=== PATIENT | female | born 1975 | race Caucasian/White ===

== ENCOUNTER 2016-06-17 06:56 | Day surgery (SDC) | payer OTHER ==
[2016-06-17] VITALS (9 sets, daily range): BP systolic 94–127; BP diastolic 55–94; PULSE 76–110; RESP 13–22; O2SAT 95–100
[~2016-06-17] VITALS: Ht 157.5 cm; Wt 88.9 kg
[~2016-06-17 06:56] MED LIST: CETI-343 PO; CYA1000I IM; DOCU-41 PO; FLUO60TA PO; GABA600T2 PO; KLO5T PO; LEVO175T5 PO; NPR500T PO; OXYC1TAB24 PO; TRAZ-118 PO
[2016-06-17] MEDS ORDERED: Glycopyrrolate 0.2 mg/mL 5 mL Inj ONE (06:57)
[2016-06-17] MEDS ORDERED: Neostigmine 1 mg/mL 5 mL Inj ONE (06:57)
[2016-06-17] MEDS ORDERED: Rocuronium 10 mg/mL 5 mL Inj ONE (06:57)
[2016-06-17] MEDS ORDERED: Dexamethasone 4 mg/mL Inj ONE (06:57)
[2016-06-17] MEDS ORDERED: HYDROmorphone 2 mg/mL Inj ONE (06:57)
[2016-06-17] MEDS ORDERED: Propofol 10,000 mCg/mL 20 mL Inj ONE (06:57)
[2016-06-17] MEDS ORDERED: EPHEDrine/NS 5 mg/mL 5 mL Syringe ONE (06:57)
[2016-06-17] MEDS ORDERED: Ondansetron 2 mg/mL 2 mL Inj ONE (06:57)
[2016-06-17] MEDS ORDERED: Lidocaine PF 1% 30 mL Inj ONE (06:57)
[2016-06-17] MEDS ORDERED: fentaNYL-PF 50 mCg/mL 2 mL Inj ONE (06:57)
[2016-06-17] MEDS ORDERED: MetoCLOpramide 5 mg/mL 2 mL Inj ONE (06:57)
[2016-06-17] MEDS: Lactated Ringer's 1,000 ML IV SCH ×3 (07:02→10:30)
--- NOTE | 2016-06-17 08:31 | PCM.HPANE ---
Patient Data Date of Service: Jun 17, 2016 Surgeon Admitting Provider: Attending Provider:Inderjit Rivera MD Primary Care Physician:Dillan Other Provider:Sridhar Mccullough Anesthesia Reason for Visit Phx Cervical Dysplasia, Abnormal Uterine Bleeding Ht/WT & BMI Height (Feet): 5 Height (Inches): 2.00 Weight (Kilograms): 88.9 Body Mass Index 36.00 Allergies Coded Allergies: No Known Allergies (Unverified , 06/16/16) Past Anesthesia History Anesthesia History: Denies:: Anesthesia Reactions, Malignant Hyperthermia Diabetes History Hx Diabetes?: No MRSA MRSA: No Medications Hypertension Medication: No Home Meds Incl Beta Harlan: No Reported Medications oxyCODONE-Acetaminophen 5-325 mg 1 Each Tablet1 Tab PO Q4H PRN For Pain Ref 0 06/16/16 Docusate Sodium (Colace)100 Mg Lermdhw643 Mg PO BID PRN For Constipation Ref 0 06/16/16 Cyanocobalamin (Cyanocobalamin Injection)1,000 Mcg/1 Ml Vial1,000 Mcg IM Monthly 06/16/16 Trazodone 100 Mg [id number] Mg PO HS Ref 0 06/16/16 Naproxen 500 Mg Wvj919 Mg PO BID PRN For Pain Ref 0 06/16/16 Levothyroxine 175 Mcg Ybajmz741 Mcg PO DAILY Ref 0 06/16/16 Gabapentin 600 Mg Ftdulw016 Mg PO TID Ref 0 06/16/16 Fluoxetine 60 Mg Eoevbc90 Mg PO DAILY Ref 0 06/16/16 Clonazepam 0.5 Mg Tablet0.5 Mg PO BID PRN For Anxiety Ref 0 06/16/16 Cetirizine HCl (24Hour Allergy)10 Mg Fijvhx99 Mg PO DAILY 06/16/16 History History of ENT Problems?: Yes HEENT History: Positive for:: Sinus Problem (SEASONAL ALLERGIES) Hx of Heart Problems?: No Cardiovascular History: Denies:: Heart Murmur Hypertension Hx of Respiratory Problem?: Yes Respiratory History: Denies:: Use of C-PAP Machine (SNORES) Hx Neurologic Problems?: Yes Neurological History: Positive for:: Headaches Hx of GI Problems?: No Hx of Problems?: No Female Hx: Denies:: Currently (S/P ENDOMETRIAL BX,LEEP PROC. X2, CERCLAGE,BTL HX MISSED AB) Skin History: Denies:: History Skin Disorders? Pressure Ulcers Hx Musculoskeletal Problems?: Yes Musculoskeletal History: Positive for:: Fibromyalgia Hx of Psycho/Social Problems?: Yes Psycho Social History: Positive for:: Anxiety (PTSD) Hx Depression Hx Surgeries?: Yes (ENDOMETRIAL BX,LEEP PROCEDURE X2,CERCLAGE,BTL) Hx Any Other Health Problems?: Yes Other History: Positive for:: Cancer (CERVICAL (?DYSPLASIA)) Hospitalization (CHILDBIRTH) Thyroid Disease Denies:: Endocrine Disease History Blood Transfusions: Denies:: Blood Transfusions Hx Diabetes: No Hx Substance Use: No Smoking Status: Former Smoker Have You Smoked inLast 12 mo: No Stop/Bang Treated for Sleep Apnea?: No Do You Have a CPAP Machine?: No Did you bring your Machine? sleep study negative S-Snoring: Do You Snore Loudly: Yes T-Tired: feel tired, fatigued: Yes O-Obsered: Observed not breath: No P-Blood Pressure: treated: No B- Body Mass Index > 35 kg/m2: Yes A- Age over 50: No N- Neck Large Circumference: No G- Gender Male: No MATT Total Score: 3 MATT Risk Assessment: High Risk, =/>3 Yes MATT Category 4 OutPt Procedure: Yes Risk Assessment Category Category 1A: Patient has history of documented sleep apnea, and HAS NOT received any narcotic, sedative or anesthesia administration during this stay. Category 1B: Patient has history of documented sleep apnea, and HAS received any narcotic , sedative or anesthesia administration during this stay Category 2: Patient has SUSPECTED Obstructive Sleep Apnea, and HAS received any narcotic , sedative or anesthesia administration during this stay. Category 3: Patient has SUSPECTED Obstructive Sleep Apnea and HAS NOT received narcotic, sedative or anesthesia administration during this stay. Category 4: Outpatient in Procedural Areas with known sleep apnea or who screen positive for High Risk via the STOP/BANG questionnaire. Exam Exam Vital Signs Vital Signs Date Time Temp Pulse Resp B/P Pulse Ox O2 Delivery O2 Flow Rate FiO2 06/17/16 07:27 36.2 76 18 94/64 96 Room Air General Appearance: Alert, Oriented X3, Cooperative HEENT/AIRWAY: MP 1, Neck Movement (Full), Mouth Opening (wide) Lungs: Clear to Auscultation, Normal Air Movement Heart: Regular Rate/Rhythm, Normal S1, Normal S2 Meds/Labs/Diagnostics Admission Meds Current Medications Lactated Ringer's (Lr) 1,000 ml @ 120 mls/hr Q8H20M IV Last administered on t 07:02; Start 06/17/16 at 05:00; Stop 06/17/16 at 13:19 Labs Hct 41% Plan Impression Patient chart reviewed, patient interviewed and anesthestic plan with risks, benefits, and alternatives discussed, and informed consent obtained. NPO Status: water at 0615 ASA Physical Status: ASA2 Mod Systemic Disease Anesthetic Plan: GA Bene/Risks/Altern/Consents: Yes HP Complete Prior to Induction: Yes Fei Avalos MD Jun 17, 2016 08:02
[2016-06-17] MEDS ORDERED: Lactated Ringer's 500 ML IV PRN (08:32)
[2016-06-17] MEDS ORDERED: Lactated Ringer's 1,000 ML IV SCH (08:32)
[2016-06-17] MEDS ORDERED: fentaNYL-PF 50 mCg/mL 2 mL Inj IVPUSH PRN (08:35)
[2016-06-17] MEDS ORDERED: EPHEDrine Sulfate 50 mg/mL Inj IVPUSH PRN (08:35)
[2016-06-17] MEDS ORDERED: Phenylephrine 10,000 mCg/mL Inj IVPUSH PRN (08:35)
[2016-06-17] MEDS ORDERED: Dexamethasone 4 mg/mL Inj IVPUSH PRN (08:35)
[2016-06-17] MEDS ORDERED: Labetalol 5 mg/mL 4 mL Inj IV PRN (08:35)
[2016-06-17] MEDS ORDERED: Atropine 0.4 mg/mL Inj IVPUSH PRN (08:35)
[2016-06-17] MEDS ORDERED: MetoCLOpramide 5 mg/mL 2 mL Inj IVPUSH PRN (08:35)
[2016-06-17] MEDS ORDERED: Ondansetron 2 mg/mL 2 mL Inj IVPUSH PRN ×2 (08:35→11:35)
[2016-06-17] MEDS ORDERED: HYDROmorphone 1 mg/mL Inj IVPUSH PRN (08:35)
[2016-06-17] MEDS ORDERED: hydrALAZINE 20 mg/mL Inj IVPUSH PRN (08:35)
[2016-06-17] MEDS ORDERED: CeFAZolin Inj 2 gm / 50mL D5W IV ONE (08:38)
[2016-06-17] MEDS ORDERED: CeFAZolin Inj 2 GM in IV Premix 1 EACH IV ONE ×2 (08:40→08:48)
[2016-06-17] MEDS ORDERED: Bupivacaine 0.5%/EPI 50 mL Inj INFILTRATE ONE (09:22)
--- NOTE | 2016-06-17 11:32 | PCM.ANEP1 ---
Post Anesthesia Phase 1 PACU Phase 1 Assessment Date of Service: Jun 17, 2016 Vital Signs PACU HR 135, RR 31, BP 1554/86, T 36.6, O2 100% 10L Vital Signs Date Time Temp Pulse Resp B/P Pulse Ox O2 Delivery O2 Flow Rate FiO2 06/17/16 07:27 36.2 76 18 94/64 96 Room Air Anesthetic Administered: GA Level of Alertness: Sleeping, hard to arouse ROSSI's with Equal Strength: Yes Pain: No Nausea or Vomiting: No Oxygen Delivery: Simple Mask Lungs: Normal Air Movement Fei Avalos MD Jun 17, 2016 11:31
--- NOTE | 2016-06-17 11:33 | PCM.SURGOP ---
Surgical Operative Report Date of Service: Jun 17, 2016 Pre Operative Diagnosis 1. Abnormal uterine bleeding failing medical management 2. History of high risk cervical dysplasia with two LEEPs 3. Obesity Post Operative Diagnosis 1. Abnormal uterine bleeding failing medical management 2. History of high risk cervical dysplasia with two LEEPs 3. Obesity Procedure: Total laparoscopic hysterectomy with bilateral salpingectomy and cystoscopy Surgeon and Technical Photographer: Surgeon: Inderjit Rivera MD Assistants: Rebecca Medina MD, Dr.'s assistance was necessary for safe completion of this case. Indication for Procedure Karen is a 40yo who presents today for planned hysterectomy for abnormal uterine bleeding, heavy menstrual bleeding desiring definitive management and failing medical management. She had a benign endometrial biopsy 12/2015. She has history of "cervical cancer" and two LEEP procedures in 1997 (records from [facility] obtained did not include pathology, but only references KALYN history, not malignancy), two full term births with cerclage and heavy irregular periods since menarche at age 12 presents with worsened bleeding over the last 6 months. She has cramping and spotting after vaginal stimulation and a history of painful intercourse. She had a tubal ligation in 1999 and is certain she is done having children. Transvaginal ultrasound which showed an endometrial stripe 17-21mm thick, normal ovaries, and a 1.2 cm nabothian cyst in an otherwise normal uterus. Her last pap was 11/2015 and normal. Please see H&P from 06/03/2016. Allowed time to ask questions again this morning and all questions were answered to the best of my ability. Findings: Normal uterus, tubes, and ovaries. Normal appendix and liver. No abnormalities noted intraabdominal on laparoscopy. Cystoscopy at the end of the case shows normal bladder without injury or defect. Normal strong bilateral ureteral jets. Procedure Details The patient was taken the operating room where she was placed under general anesthesia without difficulty. She was then positioned in dorsal supine lithotomy. A time-out was performed prior to the start of the procedure. The patient was prepped and draped in the normal sterile fashion. Attention was turned to the patient's vagina where a speculum was placed and the tenaculum anteriorly to visualize the cervix. A medium VCare uterine manipulator was then placed without difficulty. The speculum and tenaculum were removed. Clark catheter was placed. Attention was turned to the patient's abdomen where a Veress needle was carefully introduced into the umbilicus. Intraabdominal placement was confirmed with drop of a water-filled syringe and a drop in CO2 pressure. The abdomen was then insufflated. The Veress needle was removed and a 5 mm trocar incision was made. The trocar was then placed with direct visualization and placement was confirmed with a laparoscope. Under direct visualization, 2 additional 5 mm ports were then placed, one on the patient's left side and one on the patient's right side. Survey of the patient's abdomen revealed no abnormalities. There was evidence of her previous tubal ligation. The ovarian fossa was inspected bilaterally and the ureteral peristalsis was noted bilaterally. The ureters were well out of the field of operation. Starting on the patient's right side, the fallopian tube was excised and sent to pathology using the Thunderbeat. The right utero-ovarian ligament was then incised and ligated using the Thunderbeat device, then taken down followed by the right round ligament. The anterior leaf of the broad ligament was then and the bladder flap was created using . The posterior leaf of the broad ligament was then taken down to skeletonize the uterine vessels. The uterine vessels were ligated. This was repeated on the left. The uterine vessels in the pedicle were taken down past the vaginal cuff. Using the Thunderbeat, a colpotomy was made circumferentially around the Vcare manipulator. The uterus and cervix were then delivered through the vagina. The cuff was sewn with 2-0 V-lock in a running nonlocked fashion. The CO2 was removed of the abdomen with the aid of two deep breath and all trocars were removed. The skin incisions were closed with 4-0 vicryl and dermabond. Attention was turned to the cystoscope. The Clark catheter was then removed and the cystoscope was gently advanced into the urinary bladder. The bladder appeared normal with no defects. Bilateral ureteral jets were visualized. The cystoscope was then removed. The patient tolerated the procedure well. Sponge, lap, and instrument counts were correct x2 at the close of the procedure. UOP: 300mL IVF: 1300 mL VTEP: SCDs Antibiotics: 2g Ancef Complications There were no periprocedural complications identified. Surgical Specimen Removed: Yes Specimen sent to Pathology: Yes Surgical Specimen description: Uterus, bilateral fallopian tubes Anesthetic Plan: GA Grafts, Implants: None Output, Estimated Blood Loss: 30 (mL) Blood Administration during hernandez: No Catheters: Urethral 2 Way Clark (removed at the end of the case.) Inderjit Rivera MD Jun 17, 2016 11:33
[2016-06-17] MEDS ORDERED: oxyCODONE-Acetamin 5-325 mg Tablet PO PRN (11:35)
--- NOTE | 2016-06-17 11:36 | PCM.ANEP2 ---
Post Anesthesia Evaluation ASA/CMS Post Anesthesia Date of Service: Jun 17, 2016 VS in Patient's Normal Range?: Yes Resp Stable; Airway Patent?: Yes CV Function & Hydration Stable: Yes Mental Status Recovered?: Yes Pain control Satisfactory?: Yes N/V Control Satisfactory?: Yes Fei Avalos MD Jun 17, 2016 11:36
--- NOTE | 2016-06-17 11:39 | PCM.DIGYN ---
Surgical Discharge Instruction Dates of Hospitalization Date of Hospital Admission 06/17/2016 Providers Admitting Physician: Primary Care Physician: Nopfiliberto Attending Physician: Inderjit Rivera MD Diagnosis at Time of Discharge Post-operative diagnosis 1. Abnormal uterine bleeding failing medical management 2. History of high risk cervical dysplasia with two LEEPs 3. Obesity Problems: Diet Discharge Diet: No restrictions Activity Discharge Activity-General: Be up and about, Activity as pain allows, Restrict lifting to no greater than (10lbs for 8 weeks), No driving while taking narcotic , Other (Pelvic rest for 8 weeks (no tampon, intercourse, etc)) Dressing and Incisional Care Hygiene: May shower, DO NOT soak incision under water Additional Instructions Additional Instructions You had an uncomplicated total laparoscopic hysterectomy (removal of uterus and cervix) with removal of both fallopian tubes. I did not see anything abnormal at the time of surgery. You should anticipate some pain and light bleeding at home. The right incision will probably be the most bothersome, and I would anticipate some bruising, but this should improve with time. Your pathology results will likely take about 1 week to return. Please ask about the results at your postoperative appointment coming up in 2 weeks. Follow Up Plan Follow-up appointment: Weeks (2), As previously arranged Call your provider for: Fever (of 100.4 or higher), Chills, Shortness of breath , Vomitting, Drainage at incision, Heavy vaginal bleeding, Increasing pain Inderjit Rivera MD Jun 17, 2016 11:39
--- NOTE | 2016-06-19 13:29 | PATH ---
SURGICAL PATHOLOGY Attending Physician:Inderjit Rivera MD CASE STATUS: Signed Out PATIENT NAME: RIMA SAMAYOA PID: [id number] : 1975 DATE COLLECTED:06/17/2016 20:27 SPECIMEN: 1: Fallopian Tube, Biopsy 2: Fallopian Tube, Biopsy 3: Uterus +/- tubes/ovaries, except neoplastic, prolapse CLINICAL HISTORY: ABNORMAL BLEEDING, HISTORY OF KALYN 3 WITH RECENT LEEP, NO PAP, POST HISTORY OF CERVICAL DYSPLASIA 1). SEGMENT RIGHT FALLOPIAN TUBE 2). SEGMENT OF LEFT FALLOPIAN TUBE 3). UTERUS FINAL DIAGNOSIS: 1. 2.SEGMENTS OF RIGHT AND LEFT FALLOPIAN TUBE: NO SIGNIFICANT PATHOLOGIC CHANGE. 3.UTERUS WITH PORTIONS OF FALLOPIAN TUBES ATTACHED: MULTIPLE LEIOMYOMAS, MYOMETRIUM. PROLIFERATIVE ENDOMETRIUM WITH DISORDERED ARCHITECTURE, NEGATIVE FOR ATYPIA. SINGLE FOCUS OF LOW-GRADE SQUAMOUS INTRAEPITHELIAL LESION (KALYN 1) IN CERVIX FOLLOWING COMPLETE EMBEDDING OF THE ENTIRE CERVIX. ICD10 CODE GROSS DESCRIPTION: The specimens are received in formalin, labeled with the patient's name, and sublabeled as the following: (1) segment right fallopian tube; (2) segment of left fallopian tube; (3) uterus. (1) The specimen consists of the fimbriated portion of a fallopian tube (length-1.7 cm, diameter-0.9 cm). The serosa is brown smooth and shiny. The lumen is conde and unremarkable. Section code: (1A) fimbria, bivalved. Specimen entirely submitted. (2) The specimen consists of the fimbriated portion of a fallopian tube (length-1.3 cm, diameter-0.6 cm). The serosa is brown smooth and shiny. The lumen is conde and unremarkable. Section code: (2A) fimbria, bivalved. Specimen entirely submitted. (3) The specimen consists of a uterus (95 g, 4.0 cm in AP, 8.8 cm SI, 4.6 cm ML) with attached non-fimbriated portions of fallopian tubes (right: length-2.5 cm, diameter-0.7 cm; left: length-2.1 cm, diameter-0.5 cm). The ovaries are absent. The cervix (3.2 cm AP, 2.9 cm ML) has a transverse os and patent endocervical canal lined with multiple cystic cavities (0.1 cm-1.1 cm) containing pale yellow clear gelatinous material. The endometrium (average thickness-0.2 cm) is conde-red and shaggy. The myometrium (thickness-up to 2.0 cm) is conde and contains multiple solid firm white whorled homogenous well-circumscribed nodules (1.1 x 0.8 x 0.6 cm-1.2 x 0.8 x 0.8 cm) within the posterior aspect. The serosa is conde-adams smooth and shiny. The fallopian tubes have moore-purple smooth shiny serosa and conde unremarkable limits. The cervix is radially sectioned and submitted from 12:00. Section code: (3A to 3D) cervix, 12:00 to 3:00;(3E-3I) cervix, 3:00 to 6:00; (3J-3O) cervix, 6:00 to 9:00; (3P-3U) cervix, 9:00 to 12:00; (3V, 3W) anterior endomyometrium; (3 X, 3Y) posterior endomyometrium; (3Z) right fallopian tube, serially sectioned, healthcare sales representative; (3AA) left fallopian tube, serially sectioned, healthcare sales representative. Note: Cervix entirely submitted. 06/18/16 JM MICRO DESCRIPTION: See diagnosis. ICD-9 CODES: CPT CODES: 1: 40082 2: 02593, 79961 Electronically Signed Out Ramone Mcgovern MD [facility] Pathology [facility] [address], [place] [address] Technical component performed at [facility], [address] [place] [address] Ave[address], [place], [address]
== END 2016-06-17 23:59 | disposition home or self-care (01) ==
LOC: SAS 06:56
PROVIDERS: ATTEND Obstetrics & Gynecology
DX: N92.1 Excessive and frequent menstruation with irregular cycle (principal); Z85.41 Personal history of malignant neoplasm of cervix uteri; F41.9 Anxiety disorder, unspecified; F43.10 Post-traumatic stress disorder, unspecified; F32.9 Major depressive disorder, single episode, unspecified; E03.9 Hypothyroidism, unspecified; M79.7 Fibromyalgia; Z87.891 Personal history of nicotine dependence; E66.9 Obesity, unspecified; Z68.35 Body mass index [BMI] 35.0-35.9, adult
CPT/HCPCS: 58571; 88305; 88309; J0690; J1100; J1170; J2250; J2405; J2710; J2765; J3010; J7120

== ENCOUNTER → 2017-01-13 | Day surgery (SDC) | payer OTHER ==
[~2017-01-13] VITALS: Ht 157.5 cm; Wt 81.2 kg
[~2017-01-13] MED LIST changes: +Lactated Ringer's 1,000 ML IV SCH; +MetoCLOpramide 5 mg/mL 2 mL Inj IVPUSH PRN; +Ondansetron 2 mg/mL 2 mL Inj IVPUSH PRN; +Propofol 10,000 mCg/mL 20 mL Inj ONE
[2017-01-13 11:11] VITALS: BP 114/82; PULSE 98; RESP 16; O2SAT 98
--- NOTE | 2017-01-13 11:27 | PCM.HPANE ---
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 K50.0 Ht/WT & BMI Height (Feet): 5 Height (Inches): 2 Weight (Kilograms): 81.19 Body Mass Index 32.00 Allergies Coded Allergies: No Known Drug Allergies (Verified Allergy, Unknown, 01/13/17) Past Anesthesia History Anesthesia History: Denies:: Abnormal Airway, Anesthesia Reactions, Difficult Intubation, Fam Anesthesia Reaction, Fam Malignant Hypertherm, Malignant Hyperthermia Diabetes History Hx Diabetes?: No MRSA MRSA: No Medications Hypertension Medication: No Home Meds Incl Beta Harlan: No Reported Medications Cyanocobalamin (Cyanocobalamin Injection)1,000 Mcg/1 Ml Vial1,000 Mcg IM Monthly 06/16/16 Trazodone 100 Mg Bondrx969-822 Mg PO HS Ref 0 06/16/16 Levothyroxine 175 Mcg Zvadkj051 Mcg PO DAILY Ref 0 06/16/16 Gabapentin 600 Mg Lcsuwe552 Mg PO TID Ref 0 06/16/16 Fluoxetine 60 Mg Dbwsdz61 Mg PO DAILY Ref 0 06/16/16 Clonazepam 0.5 Mg Tablet0.5 Mg PO BID PRN For Anxiety Ref 0 06/16/16 Cetirizine HCl (24Hour Allergy)10 Mg Rgylvo98 Mg PO DAILY 06/16/16 Discontinued Reported Medications oxyCODONE-Acetaminophen 5-325 mg 1 Each Tablet1-2 Tab PO Q4H PRN For Pain Ref 0 06/16/16 Docusate Sodium (Colace)100 Mg Oiwxdtw809 Mg PO BID PRN For Constipation Ref 0 06/16/16 Naproxen 500 Mg Ngp187 Mg PO BID PRN For Pain Ref 0 06/16/16 History History of ENT Problems?: Yes HEENT History: Positive for:: Sinus Problem (SEASONAL ALLERGIES) Denies:: Abnormal Airway Difficult Intubation Dysphagia Hearing Problem Denture Type: None Teeth Condition: Within Normal Limits Hx of Heart Problems?: No Cardiovascular History: Denies:: AICD Atrial Fibrillation Chest Pain Heart Murmur Hypertension Pacemaker Valvular Heart Disease Hx of Respiratory Problem?: Yes Respiratory History: Positive for:: Asthma (ALLERGY INDUCED) Use of C-PAP Machine (SNORES) Denies:: COPD Cough Hemoptysis Pneumonia Tuberculosis Hx Neurologic Problems?: Yes Neurological History: Positive for:: Headaches Denies:: CVA Hx of GI Problems?: Yes Hx of Problems?: No Female Hx: Denies:: Currently (TUBAL AND HYSTERECTOMY) Skin History: Denies:: History Skin Disorders? Pressure Ulcers Hx Musculoskeletal Problems?: Yes Musculoskeletal History: Positive for:: Fibromyalgia Denies:: Joint Replacement Hx of Psycho/Social Problems?: Yes Psycho Social History: Positive for:: Anxiety (PTSD) Hx Depression Hx Surgeries?: Yes (ENDOMETRIAL BX,LEEP PROCEDURE X2,CERCLAGE,BTL) Hx Any Other Health Problems?: Yes Other History: Positive for:: Cancer (CERVICAL (?DYSPLASIA)) Hospitalization (CHILDBIRTH) Thyroid Disease Denies:: Endocrine Disease History Blood Transfusions: Denies:: Blood Transfusions Hx Diabetes: No Hx Alcohol Use: Yes (VERY SELDOM)Hx Substance Use: No Smoking Status: Former Smoker Have You Smoked inLast 12 mo: No Stop/Bang Treated for Sleep Apnea?: No Do You Have a CPAP Machine?: No S-Snoring: Do You Snore Loudly: No T-Tired: feel tired, fatigued: No O-Obsered: Observed not breath: No P-Blood Pressure: treated: No B- Body Mass Index > 35 kg/m2: No A- Age over 50: No N- Neck Large Circumference: No G- Gender Male: No MATT Total Score: 0 MATT Risk Assessment: Low Risk, <3 Yes Risk Assessment Category Category 1A: Patient has history of documented sleep apnea, and HAS NOT received any narcotic, sedative or anesthesia administration during this stay. Category 1B: Patient has history of documented sleep apnea, and HAS received any narcotic , sedative or anesthesia administration during this stay Category 2: Patient has SUSPECTED Obstructive Sleep Apnea, and HAS received any narcotic , sedative or anesthesia administration during this stay. Category 3: Patient has SUSPECTED Obstructive Sleep Apnea and HAS NOT received narcotic, sedative or anesthesia administration during this stay. Category 4: Outpatient in Procedural Areas with known sleep apnea or who screen positive for High Risk via the STOP/BANG questionnaire. Exam Exam Vital Signs Vital Signs Date Time Temp Pulse Resp B/P Pulse Ox O2 Delivery O2 Flow Rate FiO2 01/13/17 11:11 98 16 114/82 98 Room Air General Appearance: Oriented X3 HEENT/AIRWAY: MP 2 Lungs: Normal Air Movement Heart: Regular Rate/Rhythm Plan Impression Patient chart reviewed, patient interviewed and anesthestic plan with risks, benefits, and alternatives discussed, and informed consent obtained. ASA Physical Status: ASA2 Mod Systemic Disease Anesthetic Plan: MAC Bene/Risks/Altern/Consents: Yes HP Complete Prior to Induction: Yes Carlos Thompson MD Jan 13, 2017 11:27
[2017-01-13 12:05] VITALS: BP 87/63; PULSE 86; RESP 20; O2SAT 97
--- NOTE | 2017-01-13 12:13 | PCM.ANEP1 ---
Post Anesthesia PACU Phase 1 Assessment Vital Signs Vital Signs Date Time Temp Pulse Resp B/P Pulse Ox O2 Delivery O2 Flow Rate FiO2 01/13/17 12:05 86 20 87/63 97 Room Air 01/13/17 11:11 98 16 114/82 98 Room Air Anesthetic Administered: MAC Level of Alertness: Awake, talking Pain: No Nausea or Vomiting: No CV Function & Hydration Stable: Yes Airway Device: Lungs: Normal Air Movement PACU Phase 2 Assessment Patient Instructions Provided: N/A Carlos Thompson MD Jan 13, 2017 12:12
[2017-01-13 12:15] VITALS: BP 95/63; PULSE 72; RESP 16; O2SAT 99
[2017-01-13 12:24] VITALS: BP 99/68; PULSE 72; RESP 16; O2SAT 99
[2017-01-13 12:34] VITALS: BP 102/81; PULSE 76; RESP 16; O2SAT 97
--- NOTE | 2017-01-13 12:35 | ENDO ---
[address] [address] ENDOSCOPY PROCEDURE PATIENT: RIMA SAMAYOA : 1975 MR#: [id number] ADMIT: 01/13/2017 JOB ID: [id number] TITLE OF OPERATION: 1. Esophagogastroduodenoscopy(EGD) with biopsy. 2. Colonoscopy biopsy. PREOPERATIVE DIAGNOSIS(ES): Diarrhea and gastroesophageal reflux disease. POSTOPERATIVE DIAGNOSIS(ES): 1. Normal upper endoscopy status post biopsy. 2. Mild erythema with oozing pus near the appendiceal orifice status post biopsy. 3. Small internal hemorrhoids. ANESTHESIA: Monitored anesthesia care. COMPLICATIONS: None. BLOOD LOSS: Minimal. DESCRIPTION OF PROCEDURE: After the risks and benefits were explained to the patient, informed consent was obtained. After anesthesia was administered, the upper endoscope was inserted into the mouth, intubating through the esophagus, stomach, and second portion of the duodenum, and the mucosa carefully examined. After procedure was done, the scope was withdrawn and the procedure terminated. A colonoscope was then inserted from the rectum to the terminal ileum and the mucosa carefully examined. Prep of the patient was fair. After the procedure was done, the scope was withdrawn and the procedure terminated. FINDINGS: Upon inspection of the esophagus, the esophagus was normal, without masses, ulcers, or lesions. Z-line located 35 cm from the incisors. Upon entering the stomach, the stomach also normal, without masses, ulcers, or lesions. On retroflexion, 2nd portion were normal. Biopsies were taken at the duodenum, antrum, body, and distal esophagus. Upon inspection of the anus, no masses, hemorrhoids, ulcers, or fissures that were seen. Throughout the entire examination there was erythema and there was oozing pus near the appendiceal orifice which was biopsied. The terminal ileum also appeared normal. Biopsies taken at the terminal ileum and random colon. Retroflexion showed small internal hemorrhoids. IMPRESSION: 1. Small internal hemorrhoids. 2. Normal upper endoscopy. 3. On the exam, oozing pus was seen near the appendiceal orifice. Status post biopsy. RECOMMENDATION: 1. Await pathology results. 2. General Surgery consultation.
--- NOTE | 2017-01-14 13:21 | PATH ---
SURGICAL PATHOLOGY Attending Physician:Merritt Mcghee MD CASE STATUS: Signed Out PATIENT NAME: RIMA SAMAYOA PID: [id number] : 1975 DATE COLLECTED:01/13/2017 22:01 SPECIMEN: 1: Duodenum, Biopsy 2: Stomach, Antrum, Biopsy 3: Gastric, Biopsy 4: Esophagus, Biopsy 5: Ileum, Biopsy 6: Colon, Biopsy 7: Colon, Biopsy CLINICAL HISTORY: 1). DUODENAL BIOPSY 2). GASTRIC ANTRUM BIOPSY, RULE OUT H.PYLORI 3). GASTRIC BODY BIOPSY 4). DISTAL ESOPHAGUS BIOPSY 5). TERMINAL ILEUM BIOPSY 6). ERYTHEMA WITH OOZY PUSS AT APPENDICAL 7). RANDOM COLON FINAL DIAGNOSIS: 1. Duodenum, Biopsy: Duodenal mucosa with no diagnostic abnormality. Negative for active inflammation, features of sprue, dysplasia or malignancy. 2-3. Gastric Antrum, Body, Biopsies: Gastric antral and body mucosa with no diagnostic abnormality. No evidence of Helicobacter organisms on H&E stain. Negative for intestinal metaplasia, dysplasia or malignancy. 4. Distal Esophagus, Biopsy: Squamous mucosa with no diagnostic abnormality. Intraepithelial eosinophils are not increased. Negative for dysplasia or malignancy. 5. Terminal Ileum, Biopsy: Ileal mucosa with no diagnostic abnormality. Negative for active inflammation, granulomata, dysplasia or malignancy 6. Appendiceal Orifice, Biopsy: Colonic mucosa with focal ulcer. Negative for granulomata, dysplasia or malignancy. See comment. 7. Random Colon, Biopsies: Colonic mucosa with no diagnostic abnormality. Negative for active or microscopic colitis. Negative for granulomata, dysplasia or malignancy. ICD10: R19.7 K21.0 NOTE: Part 6: The findings at the appendiceal orifice raise a differential diagnosis including infection and drug/toxin-induced injury. GROSS DESCRIPTION: The specimen is received in seven formalin filled containers labeled with the patient's name. GF 1). The specimen is labeled "duodenum" and consists of 2 portions of tissue which aggregate to 0.4 x 0.2 x 0.2 CM. The specimen is entirely submitted in cassette 1A. 2). The specimen is labeled "gastric antrum" and consists of a 0.2 x 0.2 x 0.2 CM portion of tissue which is entirely submitted in cassette 2A. 3). The specimen is labeled "gastric body" and consists of 2 portions of tissue which aggregate to 0.3 x 0.3 x 0.2 CM. The specimen is entirely submitted in cassettes 3A. 4). The specimen is labeled "distal esophagus" and consists of 2 portions of tissue which aggregate to 0.3 x 0.3 x 0.2 CM. The specimen is entirely submitted in cassette 4A. 5). The specimen is labeled " TI " and consists of 2 portions of tissue which aggregate to 0.2 x 0.2 x 0.1 CM. The specimen is entirely submitted in cassette 5A. 6). The specimen is labeled "erythema with oozy puss at appendiceal" and consists of 2 portions of tissue which aggregate to 0.2 x 0.2 x 0.2 CM. The specimen is entirely submitted in cassette 6A. 7). The specimen is labeled "random colon" and consists of 3 portions of tissue which aggregate to 0.3 x 0.3 x 0.2 CM. The specimen is entirely submitted in cassette 7A. 01/13/2017DC ICD-9 CODES: CPT CODES: 1: 55044 2: 15495 3: 19762 4: 83781 5: 00262 6: 14497 7: 70774 Electronically Signed Out Mac Albarado MD, Ph.D. [facility] Pathology [facility] [address], [place] [address] Technical component performed at [facility], [facility] [address], [place], [address]
== END | disposition home or self-care (01) ==
LOC: END 00:44
PROVIDERS: ATTEND Internal Medicine Gastroenterology
DX: K64.8 Other hemorrhoids (principal); R19.7 Diarrhea, unspecified; K21.9 Gastro-esophageal reflux disease without esophagitis; K50.00 Crohn's disease of small intestine without complications; E03.9 Hypothyroidism, unspecified; M79.7 Fibromyalgia; F43.10 Post-traumatic stress disorder, unspecified; J45.909 Unspecified asthma, uncomplicated; Z90.710 Acquired absence of both cervix and uterus; Z87.891 Personal history of nicotine dependence; Z85.41 Personal history of malignant neoplasm of cervix uteri
CPT/HCPCS: 43239; 45380; 88305; J2704; J7120